=== PATIENT | female | born 1950 | race Caucasian/White ===

== ENCOUNTER 2020-01-04 23:51 | Observation (INO) | payer MEDICARE, SELFPAY ==
[2020-01-05] VITALS (26 sets, daily range): BP systolic 130–206; BP diastolic 62–97; PULSE 81–136; RESP 15–35; TEMP 36.2–37.2; O2SAT 89–99; BMI 23.6; BMI 24.7
--- NOTE | 2020-01-05 00:01 | ED.GENADULT ---
HPI - General Adult General Chief complaint: Shortness of Breath/Dyspnea Stated complaint: Shortness of breath Time Seen by Provider: 01/05/20 00:01 Source: patient and EMS Mode of arrival: EMS Limitations: no limitations History of Present Illness HPI narrative: 69-year-old female with history of asthma. Takes a daily inhaled steroid here by EMS for evaluation of shortness of breath. Patient states that she started become short of breath earlier this evening. She is staying with a friend who has a dog which is a known trigger for her. She states that she tried to use her rescue inhaler several times at home without any improvement. She then found out that the rescue inhaler was not dispensing any medications. She states that the Dilaudid did not say that it was empty however no medication was coming out when she was administering the medicine. Patient denies any fevers. No recent travel. No chest pain. Has been admitted to the hospital in the past for asthma. Has never been intubated. Has never had any ICU stays. Review of Systems Constitutional Constitutional: Denies chills and Denies fever(s) Cardiovascular Cardiovascular: Reports chest pain (Related to her breathing) Respiratory Respiratory: Reports cough Gastrointestinal Gastrointestinal: Denies nausea and Denies vomiting Musculoskeletal Musculoskeletal: Denies myalgias Integumentary/Breasts Skin/Breast: Denies rash Neurologic Neurologic: Denies behavioral changes Psychiatric Psychiatric: Denies behavioral changes Hematologic/Lymphatic Hematologic/Lymphatic: Denies easy bleeding and Denies easy bruising Allergic/Immunologic Allergic/Immunologic: Denies urticaria Patient History Medical History Asthma (Acute) Social History lives independently: Yes Exam Initial Vital Signs Initial Vital Signs: Vital Signs Pulse Rate 136 H 01/05/20 00:00 Blood Pressure 198/91 H 01/05/20 00:00 Pulse Oximetry 98 01/05/20 00:00 Const General: cooperative and healthy appearing Limitations: mental status not altered HENMT Head: normal to inspection and normocephalic Resp Effort & Inspection: not able to speak in complete sentences, audible wheezes, labored, no retractions and tachypneic Auscultation: wheezes Cardio Rate: tachycardic Rhythm: regular rhythm GI Inspection: non-distended Skin Lesions: no lesions Rashes: no rashes Neuro General: patient alert and patient awake Cognition: normal cognition Speech: speech normal Extrem General: normal to inspection and capillary refill normal Psych Appearance: grossly normal and well kempt Scores GCS [place] coma scale eye opening: Spontaneous [place] coma scale verbal response: Orientated [place] coma scale motor response: Obey commands [place] coma scale total score: 15 Course Orders Ordered: ED Orders 01/05/20 00:02 XR chest 1V Stat EKG-12 Lead Stat 01/05/20 00:03 RT Consult Eval and Treat Now 01/05/20 00:05 Basic Metabolic Panel Stat Complete Blood Count AUTO DIFF Stat Troponin I Stat Magnesium Sulfate (Magnesium Sulfate) 2 gm in 50 mls @ 25 mls/hr IV NOW ONE Stop: 01/05/20 06:58 Discontinued Medications Albuterol (Ventolin Hfa) 4 puff INH NOW ONE Stop: 01/05/20 00:02 Last Admin: 01/05/20 00:41 Dose: 4 puff Documented by: GERARDO Albuterol (Ventolin Hfa) 2 puff INH NOW ONE Stop: 01/05/20 03:23 Last Admin: 01/05/20 03:39 Dose: 2 puff Documented by: BRANDON Albuterol/Ipratropium (Duoneb) 3 ml INH NOW ONE Stop: 01/05/20 04:15 Last Admin: 01/05/20 04:22 Dose: 3 ml Documented by: BRANDON Methylprednisolone (Solu-Medrol 125 Mg Vial) 125 mg IV NOW ONE Stop: 01/05/20 00:02 Last Admin: 01/05/20 00:40 Dose: 125 mg Documented by: GERARDO Vital Signs Vital signs: Vital Signs - 8 hr 01/05/20 00:00 01/05/20 00:03 01/05/20 00:30 Temperature 98.9 F Pulse Rate 136 H 136 H 97 H Respiratory Rate 35 H Blood Pressure 198/91 H 206/97 H Pulse Oximetry 98 99 98 01/05/20 00:31 01/05/20 00:32 01/05/20 01:00 Temperature Pulse Rate 130 H 95 H Respiratory Rate 32 H Blood Pressure 160/72 H 159/70 H Pulse Oximetry 98 93 01/05/20 01:30 01/05/20 02:00 01/05/20 02:30 Temperature Pulse Rate 87 87 91 H Respiratory Rate Blood Pressure 140/67 139/70 145/77 H Pulse Oximetry 91 93 91 01/05/20 03:00 01/05/20 03:30 01/05/20 04:00 Temperature Pulse Rate 91 H 92 H 91 H Respiratory Rate 19 25 H Blood Pressure 144/78 H 137/67 152/73 H Pulse Oximetry 91 93 89 L 01/05/20 04:25 Temperature Pulse Rate 90 Respiratory Rate 18 Blood Pressure Pulse Oximetry 90 L Medical Decision Making Lab Data Lab results reviewed: Yes I reviewed the patient's lab results. Result diagrams: 01/05/20 00:05 01/05/20 00:05 Labs: Lab Results 01/05/20 01/05/20 01/05/20 Range/Units 00:05 00:05 00:35 WBC 8.1 (4.5-11.0) X10^3/uL RBC 4.09 (4.0-5.2) X10^6/uL Hgb 13.4 (12.0-16.0) g/dL Hct 39.2 (36-46) % MCV 95.8 (80-100) fL MCH 32.8 (26-34) PG MCHC 34.2 (30-36) % RDW 12.7 (11.6-14.8) % Plt Count 277 (150-400) X10^3/uL Neut % (Auto) 49.4 L (50-75) % Lymph % (Auto) 33.1 (25-40) % [place] % (Auto) 10.9 (3-14) % Eos % (Auto) 5.8 H (2-4) % Baso % (Auto) 0.8 (0-2) % Neut # (Auto) 4000 (5099-3084) /uL Lymph # (Auto) 2700 (1582-3912) /uL [place] # (Auto) 900 (0-900) /uL Eos # (Auto) 500 H (0-450) /uL Baso # (Auto) 100 (0-100) /uL Sodium 136 L (137-145) mmol/L Potassium 4.5 (3.4-5.1) mmol/L Chloride 104 (98-107) mmol/L Carbon Dioxide 23 (22-32) mmol/L BUN 15 (7-17) mg/dL Creatinine 0.67 (0.52-1.04) mg/dL Estimated GFR > 60.0 (>60) mL/min BUN/Creatinine Ratio 22.4 H (6-22) Glucose 154 H (80-110) mg/dL Calcium 9.4 (8.4-10.2) mg/dL Troponin I < 0.012 (0.01-0.034) ng/mL COVID-19 PCR Cancelled 01/05/20 Range/Units 00:35 WBC (4.5-11.0) X10^3/uL RBC (4.0-5.2) X10^6/uL Hgb (12.0-16.0) g/dL Hct (36-46) % MCV (80-100) fL MCH (26-34) PG MCHC (30-36) % RDW (11.6-14.8) % Plt Count (150-400) X10^3/uL Neut % (Auto) (50-75) % Lymph % (Auto) (25-40) % [place] % (Auto) (3-14) % Eos % (Auto) (2-4) % Baso % (Auto) (0-2) % Neut # (Auto) (6266-5116) /uL Lymph # (Auto) (7391-8319) /uL [place] # (Auto) (0-900) /uL Eos # (Auto) (0-450) /uL Baso # (Auto) (0-100) /uL Sodium (137-145) mmol/L Potassium (3.4-5.1) mmol/L Chloride (98-107) mmol/L Carbon Dioxide (22-32) mmol/L BUN (7-17) mg/dL Creatinine (0.52-1.04) mg/dL Estimated GFR (>60) mL/min BUN/Creatinine Ratio (6-22) Glucose (80-110) mg/dL Calcium (8.4-10.2) mg/dL Troponin I (0.01-0.034) ng/mL COVID-19 PCR Negative Imaging Data Chest x-ray: Attestation: I personally reviewed and interpreted this imaging study as follows: My Impression: No focal consolidations, no pneumonia ECG Data Attestation: I personally reviewed and interpreted this ECG as follows: Prior ECG tracings: not available for review Interpretation: Sinus tachycardia Ventricular rate at 1 1 Normal axis Normal QRS Normal QTC No ST T wave changes MDM Narrative Medical decision making narrative: Initially patient was placed under droplet precautions secondary to potential COVID-19. She was given albuterol through an MDI and a spacer which did seem to improve her symptoms somewhat. She was given Solu-Medrol. Observation the emergency department did show some improvement of her symptoms. She was given another couple doses of the albuterol per MDI however when the patient stood up to go to the bathroom she desaturated to the mid 80s in became very short of breath. This improved quickly with rest. She was then tested for COVID-19 by the rapid test which was negative. She was then given a DuoNeb which against she states improved her symptoms however she still had residual wheezing. Ambulation around the emergency department on pulse ox shows that she did desat to the high 80s and did become short of breath with exertion. Discussed the case with SHAYE Nino the [facility] hospital provider. Will admit for further evaluation and treatment secondary to the hypoxia. Discharge Plan Departure Patient Disposition: Admitted as Observation Clinical Impression: Hypoxia Asthma with exacerbation Qualifiers: Asthma severity: unspecified severity Asthma persistence: unspecified Qualified Code(s): J45.901 - Unspecified asthma with (acute) exacerbation Admit Date/Time: 01/05/20 05:08 Admit Provider: Perez Nino
--- NOTE | 2020-01-05 00:02 | DI.RAD.S_ITS ---
PROCEDURE: XR CHEST 1V INDICATIONS: Shortness of breath TECHNIQUE: One view of the chest was acquired. COMPARISON: None. FINDINGS: Surgical changes and devices: None. Lungs and pleura: Lungs are clear. No pleural effusions or pneumothorax. Mediastinum: Mediastinal contours appear normal. Heart size is normal. Bones and chest wall: No suspicious bony lesions. Overlying soft tissues appear unremarkable. IMPRESSION: No acute cardiopulmonary abnormality. Dictated by: Jaylon Mckinnon M.D. on 01/05/2020 at 7:55 Approved by: Jaylon Mckinnon M.D. on 01/05/2020 at 7:55
[2020-01-05 00:16] LABS: Add Manual Diff / Slide Review NO; Basophils Absolute Auto 100 /uL (0-100); Basophils Percent Auto 0.8 % (0-2); Eosinophils Absolute Auto 500 /uL (0-450); Eosinophils Percent Auto 5.8 % (2-4); Hematocrit 39.2 % (36-46); Hemoglobin 13.4 g/dL (12.0-16.0); Lymphocytes Absolute Auto 2700 /uL (1100-4500); Lymphocytes Percent Auto 33.1 % (25-40); Mean Corpuscular HGB Conc 34.2 % (30-36); Mean Corpuscular Hemoglobin 32.8 PG (26-34); Mean Corpuscular Volume 95.8 fL (80-100); Monocytes Absolute Auto 900 /uL (0-900); Monocytes Percent Auto 10.9 % (3-14); Neutrophils Absolute Auto 4000 /uL (1500-7000); Neutrophils Percent Auto 49.4 % (50-75); Platelet Count 277 X10^3/uL (150-400); Red Blood Cell Count 4.09 X10^6/uL (4.0-5.2); Red Cell Distribution Width 12.7 % (11.6-14.8); White Blood Cell Count 8.1 X10^3/uL (4.5-11.0)
[2020-01-05 00:22] LABS: BUN Creatinine Ratio 22.4 (6-22); Blood Urea Nitrogen 15 mg/dL (7-17); Calcium 9.4 mg/dL (8.4-10.2); Carbon Dioxide 23 mmol/L (22-32); Chloride 104 mmol/L (98-107); Estimated Glomerular Filt Rate > 60.0 mL/min (>60); Glucose 154 mg/dL (80-110); HEMOLYSIS < 15 (0-50); Potassium 4.5 mmol/L (3.4-5.1); Sodium 136 mmol/L (137-145)
[2020-01-05 00:34] LABS: Troponin I < 0.012 ng/mL (0.01-0.034)
[2020-01-05] MEDS: methylPREDNISolone 125 MG/2 ML VIAL IV (00:40)
[2020-01-05] MEDS: ALBUTEROL HFA 60 PUFF/8 GM INH INH ×2 (00:41→03:39)
--- NOTE | 2020-01-05 00:58 | PC.NURSE ---
much improved after albuterol inhaler with spacer.
--- NOTE | 2020-01-05 02:25 | PC.NURSE ---
Pt had been dropping on room air to 87%. Placed pt on 1L via nc and increased to 91%.
--- NOTE | 2020-01-05 03:18 | PC.NURSE ---
Provider wanted room air challenge. Pt requested to ambulate to the bathroom. monitor SPo2 on way to bathroom. pt dropped to 85%, increased rr and started with the pursed lip breathing. Hr increased to 125 at this time. upon getting back to bed, Replaced o2 on patient at 6 L initially to help patient recover. Gave 2 puffs of albuterol and pt began to improve. Pt turned O2 back down to 1L at this time. Provider aware.
[2020-01-05 04:10] LABS: COVID19 -Nasal RAPID Negative (Negative)
[2020-01-05] MEDS: ALBUTEROL/IPRATROPIUM 3 ML AMPUL INH (04:22)
[2020-01-05] MEDS: MAGNESIUM SULFATE 2 GM/50 ML PIGGYBACK IV (05:15)
[2020-01-05 05:33] LABS: Magnesium 2.1 mg/dL (1.6-2.3)
--- NOTE | 2020-01-05 05:50 | PM.HP.1 ---
History of Present Illness History of Present Illness Date Patient Seen: 01/05/20 Time Patient Seen: 05:30 Chief complaint: Shortness of breath Narrative: Ms Ute Coley is a 69-year-old female with a past medical history significant for moderate persistent asthma, hypertension, anxiety and depression and eczema who presents to the ER with shortness of breath. The patient resides in [place] in is visiting her sister here in [place] who has 3 dogs. The patient states that she began having shortness of breath on Wednesday and she had her provider call in an inhaler to local pharmacy. Apparently a haler was nonfunctional the patient had progressive dyspnea. On presentation to the ER the patient reports chest tightness, marked shortness of breath, audible wheezing with associated diaphoresis and unable to speak in full sentences. The patient has previously required steroid therapy for exacerbations but has never been intubated or required an ICU stay. She denies complaints of fevers or chills and has had no known COVID-19 exposures. She denies nasal congestion or sore throat. She reports chest tightness from her asthma and denies palpitations. She has shortness of breath as noted above. She denies abdominal pain and has had no heartburn, nausea or vomiting. She denies complaints of diarrhea, constipation or urinary symptoms. The patient is normally ambulatory without assistive devices. Upon arrival ER the patient has a temperature of 98.9? is tachycardic at 136, blood pressure of 206/97, respiratory rate of 35 saturating at 99% on room air. A chest x-ray was obtained showing no acute cardiopulmonary pathology. Twelve lead EKG was obtained which demonstrates sinus tachycardia with a ventricular rate of 101 without ectopy or block and a normal axis. She had ST or T-wave changes, Q-waves indicative of septal infarct. On laboratory analysis she has white count 8.1 with increased eosinophils of 5.8%. Her hemoglobin is 13.4 and a hematocrit of 39.0 and platelets of 277. Her electrolytes are all within normal limits with a BUN of 15 and creatinine 0.67. Her blood sugar is 154. Troponin is negative at less than 0.012. In the ER the patient received 3 nebulizer treatments and methylprednisolone 125 mg and magnesium sulfate 2 g IV. The patient was no longer hypoxic on room air but would still desaturate into the 80s on an ambulation trial. The patient is admitted to the medicine service for further management of asthma exacerbation. Patient History Medical History Anxiety (Acute) Asthma (Acute) Eczema (Acute) Hypertension (Acute) Surgical History History of abdominoplasty (Acute) History of detached retina repair (Acute) History of hand surgery (Acute) History of hysterectomy (Acute) Family & Social History Family History (Updated 01/05/20 @ 06:02 by CASEY Aguila) Father Neuropathy History of TIAs Autoimmune disorder Hypertension Mother CVA (cerebral vascular accident) Pulmonary disease Social History: lives independently Yes Safety & Behavioral: Feels Safe in Current Yes Environment Meds Home Medications and Allergies Home Medications Medication Instructions Recorded Confirmed Type albuterol sulfate 2 puff INHALATION Q6H PRN 01/05/20 01/05/20 History betamethasone valerate 1 applic TOPICAL DAILY 01/05/20 01/05/20 History conjugated estrogens 0.3 mg PO DAILY 01/05/20 01/05/20 History fluoxetine 40 mg PO DAILY 01/05/20 01/05/20 History fluoxetine 40 mg PO DAILY 01/05/20 01/05/20 History fluticasone propion-salmeterol 1 inh INHALATION DAILY 01/05/20 01/05/20 History [Advair Diskus] fluticasone propionate [Flonase 1 spray INTRANASAL DAILY PRN 01/05/20 01/05/20 History Allergy Relief] losartan 50 mg PO DAILY 01/05/20 01/05/20 History montelukast 10 mg PO DAILY 01/05/20 01/05/20 History montelukast [Singulair] 10 mg PO DAILY 01/05/20 01/05/20 History Allergies Allergy/AdvReac Type Severity Reaction Status Date / Time ciprofloxacin [From Cipro] Allergy Verified 01/05/20 05:21 codeine Allergy Verified 01/05/20 05:21 Sulfa (Sulfonamide Allergy Verified 01/05/20 05:20 Antibiotics) Review of Systems Review of Systems ROS: Yes All systems reviewed with the patient and are negative except as otherwise documented Exam Vital Signs (past 8 hours): - 01/05/20 00:00 01/05/20 00:03 07/03/20 00:30 Temperature 98.9 F Pulse Rate 136 H 136 H 97 H Respiratory Rate 35 H Blood Pressure 198/91 H 206/97 H Pulse Oximetry 98 99 98 01/05/20 00:31 01/05/20 00:32 01/05/20 01:00 Temperature Pulse Rate 130 H 95 H Respiratory Rate 32 H Blood Pressure 160/72 H 159/70 H Pulse Oximetry 98 93 01/05/20 01:30 01/05/20 02:00 01/05/20 02:30 Temperature Pulse Rate 87 87 91 H Respiratory Rate Blood Pressure 140/67 139/70 145/77 H Pulse Oximetry 91 93 91 01/05/20 03:00 01/05/20 03:30 01/05/20 04:00 Temperature Pulse Rate 91 H 92 H 91 H Respiratory Rate 19 25 H Blood Pressure 144/78 H 137/67 152/73 H Pulse Oximetry 91 93 89 L 01/05/20 04:25 Temperature Pulse Rate 90 Respiratory Rate 18 Blood Pressure Pulse Oximetry 90 L Oxygen Delivery Method Room Air Oxygen Flow Rate 1 Narrative Exam Narrative: GENERAL APPEARANCE: well developed, well nourished, in no acute distress. HEENT: Normocephalic, PERRLA, conjunctiva clear, EOMs intact without nystagmus, no sinus tenderness to percussion, no rhinorrhea, mucous membranes are dry and pink, white coating on tongue. NECK/THYROID: neck supple, no JVD, no thyromegaly, trachea midline. LYMPH NODES: no cervical or supraclavicular lymphadenopathy. SKIN: [place], warm and dry, no visible lesions or rashes HEART: regular rate and rhythm, S1-S2, no murmur, no rubs or gallops, brisk capillary refill, no edema LUNGS: Expiratory wheezing upper and lower left lung, right lung field clear, no coarseness or crackles, no cough present CHEST: Symmetrical movement, no accessory muscle use, good tidal volume. ABDOMEN: Soft, no distention, no abdominal tenderness, no organomegaly, active bowel tones. EXTREMITIES: moves all extremities, strength is 5/5 and symmetrical, no deformities or joint effusions. NEUROLOGIC: AAO x4, no focal neurologic deficits, cranial nerves II-XII grossly intact, sensation intact to light touch, hearing grossly normal to speech. PSYCH: Good eye contact, tangential thought, cooperative, stable behavior Objective Labs Result Diagrams: 01/05/20 00:05 01/05/20 00:05 Labs: Laboratory Results - last 24 hr 01/05/20 01/05/20 01/05/20 00:05 00:05 00:05 WBC 8.1 RBC 4.09 Hgb 13.4 Hct 39.2 MCV 95.8 MCH 32.8 MCHC 34.2 RDW 12.7 Plt Count 277 Neut % (Auto) 49.4 L Lymph % (Auto) 33.1 [place] % (Auto) 10.9 Eos % (Auto) 5.8 H Baso % (Auto) 0.8 Neut # (Auto) 4000 Lymph # (Auto) 2700 [place] # (Auto) 900 Eos # (Auto) 500 H Baso # (Auto) 100 Sodium 136 L Potassium 4.5 Chloride 104 Carbon Dioxide 23 BUN 15 Creatinine 0.67 Estimated GFR > 60.0 BUN/Creatinine Ratio 22.4 H Glucose 154 H Calcium 9.4 Magnesium 2.1 Troponin I < 0.012 COVID-19 PCR 01/05/20 01/05/20 00:35 00:35 WBC RBC Hgb Hct MCV MCH MCHC RDW Plt Count Neut % (Auto) Lymph % (Auto) [place] % (Auto) Eos % (Auto) Baso % (Auto) Neut # (Auto) Lymph # (Auto) [place] # (Auto) Eos # (Auto) Baso # (Auto) Sodium Potassium Chloride Carbon Dioxide BUN Creatinine Estimated GFR BUN/Creatinine Ratio Glucose Calcium Magnesium Troponin I COVID-19 PCR Cancelled Negative Assessment & Plan Assessment & Plan narrative: This is a 69-year-old female patient who was visiting from [place] at her sister's house has dogs that triggered a severe asthma attack. Patient is treated in the ER with multiple nebulized treatments methylprednisolone and magnesium sulfate however the patient continues to desaturate on ambulation trial. Exacerbation of moderate persistent asthma, present on admission, active -the patient his long history of asthma and uses Advair and albuterol at home. She can becoming short of breath 3-4 days ago and was using inhaler that was not functional. -upon arrival to the ER the patient is symptomatic with chest tightness, marked dyspnea, audible wheezing, diaphoresis, hypertension and tachycardia. -chest x-ray finds no acute cardiopulmonary processes. White count is normal at 8.1 with increased eosinophils at 5.8%. -in the ER the patient received multiple nebulizer treatments, 2 g of magnesium IV and methylprednisolone 125 mg with improvement but not to baseline. -requested respiratory therapy to consult, evaluate and treat. -ordered albuterol nebulizer every 2 hours as needed. -ordered prednisone 40 mg daily. -patient appears clinically dry, normal saline 75 cc per. Essential hypertension, present on admission, stable -patient presents with a blood pressure of 206/97 upon arrival to the ER improved to 140 3/76. -will continue patient's home regimen of losartan 50 mg daily. Anxiety, present on admission, stable -will continue patient's home regimen of fluoxetine 40 mg daily. Isolation: None, COVID-19 negative. VTE prophylaxis: SCDs, enoxaparin. IV fluid: Normal saline 75 cc/hour. Diet: Heart healthy. Code status: FULL CODE, her sister Charlene is DPOA and with her friend Rosalinda are surrogate decision makers. The patient is admitted to the hospital due to the severity of symptoms requiring ongoing management and stabilization. The patient is admitted as observation with expected length of stay to be less than 2 midnights. Scores GCS [place] coma scale eye opening: Spontaneous [place] coma scale verbal response: Orientated [place] coma scale motor response: Obey commands [place] coma scale total score: 15
[2020-01-05] MEDS: SODIUM CHLORIDE 0.9% 1,000 ML 75 ML IV (06:55)
--- NOTE | 2020-01-05 07:20 | PC.ADMIT ---
Patient admitted at 0615 to room 207 from ER per stretcher. Admitted due to asthma exacerbation and inability to maintain sats with activity. Is alert and oriented. Breath sounds with late expiratory wheezes throughout; RA sat 93% and is on continuous oximetry. Denies SOB at rest but does become SOB with exertion. HRR; placed on telemetry and is in SR. Denies nausea. BT hypoactive but is passing flatus. Denies dysuria or frequency but has some urinary urgency as well as incontinence at times. Is able to move self in bed and provided SBA when up to bathroom for safety. Noted skin lesions on scalp which she states is from eczema. Cast to left hand/forearm from recent hand surgery. Bruising noted to left arm related to surgery. Right elbow is reddened but without breakdown. Skin on feet is dry. Instructed in use of call light and bed controls. [address] [facility] Admission Note: The patient,Manasa Coley,69 y/o, was given written information regarding hospital policies, unit procedures and contact persons. Patient's smoking status: Current some day smoker. Vital Signs - 8 hr 01/05/20 00:00 01/05/20 00:03 01/05/20 00:30 Temperature 98.9 F Pulse Rate 136 H 136 H 97 H Respiratory Rate 35 H Blood Pressure 198/91 H 206/97 H Pulse Oximetry 98 99 98 01/05/20 00:31 01/05/20 00:32 01/05/20 01:00 Temperature Pulse Rate 130 H 95 H Respiratory Rate 32 H Blood Pressure 160/72 H 159/70 H Pulse Oximetry 98 93 01/05/20 01:30 01/05/20 02:00 01/05/20 02:30 Temperature Pulse Rate 87 87 91 H Respiratory Rate Blood Pressure 140/67 139/70 145/77 H Pulse Oximetry 91 93 91 01/05/20 03:00 01/05/20 03:30 01/05/20 04:00 Temperature Pulse Rate 91 H 92 H 91 H Respiratory Rate 19 25 H Blood Pressure 144/78 H 137/67 152/73 H Pulse Oximetry 91 93 89 L 01/05/20 04:25 01/05/20 04:30 01/05/20 05:00 Temperature Pulse Rate 90 92 H 91 H Respiratory Rate 18 15 17 Blood Pressure 131/69 143/76 H Pulse Oximetry 90 L 98 94 07/03/20 05:30 01/05/20 05:45 01/05/20 06:00 Temperature Pulse Rate 91 H 112 H 89 Respiratory Rate 32 H 26 H 25 H Blood Pressure 150/74 H 153/71 H Pulse Oximetry 89 L 01/05/20 06:32 Temperature 97.3 F L Pulse Rate 87 Respiratory Rate 16 Blood Pressure 139/71 Pulse Oximetry 95
[2020-01-05 08:04] LABS: Hemoglobin A1C% w Est Avg Glu 5.2 % (4.0-6.0)
[2020-01-05] MEDS: ALBUTEROL 2.5 MG/3 ML NEB (ADULT) INH ×3 (08:26→17:30)
[2020-01-05] MEDS: FLUTICASONE/SALMETEROL 500/50 60 PUFF DISKUS INH (08:35)
[2020-01-05] MEDS: ENOXAPARIN 40 MG/0.4 ML SYRINGE SUBCUT (09:59)
[2020-01-05] MEDS: LOSARTAN 50 MG TABLET PO (10:00)
[2020-01-05] MEDS: FLUoxetine 20 MG CAPSULE 40 MG PO (10:00)
[2020-01-05] MEDS: MONTELUKAST 10 MG TABLET PO (10:00)
[2020-01-05] MEDS: predniSONE 20 MG TABLET 40 MG PO (10:00)
--- NOTE | 2020-01-05 12:40 | CM.IDA ---
Initial DCP Assessment Note: Patient is a 69 yo female, resident of [place]- she is here visiting sister. Patient presents w/ SOB, admitted observation for exacerbation of moderate persistent asthma PCP: Unknown Payer: Ruper[employer] MENDOSA Reviewed chart. Met w/patient during multidisciplinary rounds, introduced role. Patient is active and indp. at baseline, lives alone in [place], explains she will likely have no needs from this RECORDS MANAGEMENT ASSISTANT upon DC. Patient's sister lives in [place] and patient plans to stay w/her sister until she can drive her back to her home in [place], hopefully by Wednesday. Dr Whitley anticipates patient will be here this evening and may be able to safely DC tomorrow. P: DC home expected tomorrow w/family via private auto. This RECORDS MANAGEMENT ASSISTANT will remain available in case in DC needs or concerns arise. CHANCE Valenzuela Discharge Planning/Care Management CM Discharge Assessment Start: 01/05/20 12:35 Freq: Status: Active Protocol: Document 01/05/20 12:36 FERMIN (Rec: 01/05/20 12:40 FERMIN [id number]) Discharge Planning Assessment Assigned Tax Compliance Representative CHANCE House DPOA/Assigned Designee Name sister Dennis Contact Information [phone] Advance Directives? Yes History Provided By Patient Prior Living Arrangements Apartment/Condo Comment [facility] Household Members none Type of transporation used prior to Drives own vehicle admit Independent with ADL's Yes Is patient alert and oriented? Yes Barriers to Discharge No Comment Patient plans to DC home w/ sister once medically cleared and sister plans to drive her back to [place] Wednesday Discharge Plan Home Transportation Arrangement Family Referrals Initiated None needed
--- NOTE | 2020-01-05 14:03 | P.PN_ITS ---
Subjective Subjective Date Patient Seen: 01/05/20 Interval history: She is seen today to follow-up her acute bronchospasm and recent left and surgery. There is a small ?picking type ulcer? on her vertex which she blames on eczema and scratching. She is quite engaged and enthusiastically. She plans to return to her home in [place] but is currently visiting her sister here while she recovers from the left hand surgery. She feels like she is breathing better. Her glucose was 154. She has no history of diabetes. The A1c is only 5.2 Exam Vital Signs (past 8 hours): - 01/05/20 06:32 01/05/20 07:57 01/05/20 10:00 Temperature 97.3 F L 97.1 F L Pulse Rate 87 81 88 Respiratory Rate 16 15 Blood Pressure 139/71 133/78 133/78 Pulse Oximetry 95 93 01/05/20 11:25 Temperature 98.7 F Pulse Rate 81 Respiratory Rate 17 Blood Pressure 130/62 Pulse Oximetry 94 Oxygen Delivery Method Room Air Oxygen Flow Rate 0 Narrative Exam Narrative: She is alert and oriented x3. She is in no apparent distress. Heart is regular rate and rhythm without murmur. Lungs are very tight with diminished air flow and wheezing bilaterally. Extremities have no ankle edema. There is a 4 mm picking type crater like ulcer on the top of the head with surrounding hair follicles of different lengths consistent with hair pulling. Objective Labs Result Diagrams: 01/05/20 00:05 01/05/20 00:05 Labs: Laboratory Results - last 24 hr 01/05/20 01/05/20 01/05/20 00:05 00:05 00:05 WBC 8.1 RBC 4.09 Hgb 13.4 Hct 39.2 MCV 95.8 MCH 32.8 MCHC 34.2 RDW 12.7 Plt Count 277 Neut % (Auto) 49.4 L Lymph % (Auto) 33.1 Ceiba % (Auto) 10.9 Eos % (Auto) 5.8 H Baso % (Auto) 0.8 Neut # (Auto) 4000 Lymph # (Auto) 2700 Ceiba # (Auto) 900 Eos # (Auto) 500 H Baso # (Auto) 100 Sodium 136 L Potassium 4.5 Chloride 104 Carbon Dioxide 23 BUN 15 Creatinine 0.67 Estimated GFR > 60.0 BUN/Creatinine Ratio 22.4 H Glucose 154 H Hemoglobin A1c Calcium 9.4 Magnesium 2.1 Troponin I < 0.012 COVID-19 PCR 01/05/20 01/05/20 01/05/20 00:35 00:35 07:54 WBC RBC Hgb Hct MCV MCH MCHC RDW Plt Count Neut % (Auto) Lymph % (Auto) Ceiba % (Auto) Eos % (Auto) Baso % (Auto) Neut # (Auto) Lymph # (Auto) Ceiba # (Auto) Eos # (Auto) Baso # (Auto) Sodium Potassium Chloride Carbon Dioxide BUN Creatinine Estimated GFR BUN/Creatinine Ratio Glucose Hemoglobin A1c 5.2 Calcium Magnesium Troponin I COVID-19 PCR Cancelled Negative Assessment & Plan Assessment & Plan narrative: This is a 69-year-old female patient who was visiting from [place] at her sister's house when exposure to her dogs triggered a severe asthma attack. Patient was treated in the ER with multiple nebulized treatments methylprednisolone and magnesium sulfate however the patient continued to desaturate on ambulation trial. Exacerbation of moderate persistent asthma, present on admission, active -the patient his long history of asthma and uses Advair and albuterol at home. She became short of breath 3-4 days ago and was using an old inhaler that was not functional. -upon arrival to the ER the patient is symptomatic with chest tightness, marked dyspnea, audible wheezing, diaphoresis, hypertension and tachycardia. -chest x-ray finds no acute cardiopulmonary processes. White count is normal at 8.1 with increased eosinophils at 5.8%. -in the ER the patient received multiple nebulizer treatments, 2 g of magnesium IV and methylprednisolone 125 mg with improvement but not to baseline. -respiratory therapy, evaluate and treat. -albuterol nebulizer every 2 hours as needed. -prednisone 40 mg daily. -patient appeared clinically dry, normal saline 75 cc per. Essential hypertension, present on admission, stable -patient presents with a blood pressure of 206/97 upon arrival to the ER improved to 143/76. -will continue patient's home regimen of losartan 50 mg daily. Anxiety, present on admission, stable -will continue patient's home regimen of fluoxetine 40 mg daily. Left Hand Surgery, present on admission, chronic -she apparently had a tendon surgery and a procedure on 1 of the wrist bones. She does not recall the details. She is wearing a cast and will be following up with her surgeon in [place] soon. Isolation: None, COVID-19 negative. VTE prophylaxis: SCDs, enoxaparin. IV fluid: Normal saline 75 cc/hour. Diet: Heart healthy. Code status: FULL CODE, her sister Charlnee is DPOA and with her friend Rosalinda are surrogate decision makers.
[2020-01-05] MEDS: CALCIUM CARBONATE 500 MG TAB 1000 MG PO (14:36)
[2020-01-06 00:40] VITALS: BP 134/87; PULSE 79; RESP 18; TEMP 36.6; O2SAT 93
[2020-01-06 00:51] VITALS: PULSE 65; RESP 16
[2020-01-06] MEDS: ALBUTEROL 2.5 MG/3 ML NEB (ADULT) INH ×2 (00:51→07:43)
--- NOTE | 2020-01-06 01:22 | PC.NURSE ---
Addendum entered by Gena Boston R.N. 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 Pt BP was elevated 166/98, reported both items to Hiram PEÑA. Hiram ordered throat lozenges for patient comfort. Original Note: Patient O2 sats 93% upon assessment and 92% on exertion to the bathroom. RT was called and I asked that they come do a breathing treatment. After treatment o2 sats 95%.
[2020-01-06 05:48] VITALS: BP 162/98; PULSE 80; RESP 18; TEMP 36.3; O2SAT 94
[2020-01-06] MEDS: BENZOCAINE/MENTHOL 1 LOZ PKT 1 EACH PO ×2 (06:13→09:11)
[2020-01-06] MEDS: FLUTICASONE/SALMETEROL 500/50 60 PUFF DISKUS INH (07:41)
[2020-01-06 07:45] VITALS: PULSE 71; RESP 18; O2SAT 96
[2020-01-06 07:55] VITALS: O2SAT 96
[2020-01-06 08:00] VITALS: BP 154/99; PULSE 74; RESP 18; TEMP 36.6; O2SAT 94
--- NOTE | 2020-01-06 08:08 | PM.DS.1 ---
History of Present Illness History of Present Illness Date Patient Seen: 01/06/20 Time Patient Seen: 08:08 Chief complaint: Shortness of breath Narrative: As per CASEY Aguila: Ms Ute Coley is a 69-year-old female with a past medical history significant for moderate persistent asthma, hypertension, anxiety and depression and eczema who presents to the ER with shortness of breath. The patient resides in [place] in is visiting her sister here in [place] who has 3 dogs. The patient states that she began having shortness of breath on Wednesday and she had her provider call in an inhaler to local pharmacy. Apparently a haler was nonfunctional the patient had progressive dyspnea. On presentation to the ER the patient reports chest tightness, marked shortness of breath, audible wheezing with associated diaphoresis and unable to speak in full sentences. The patient has previously required steroid therapy for exacerbations but has never been intubated or required an ICU stay. She denies complaints of fevers or chills and has had no known COVID-19 exposures. She denies nasal congestion or sore throat. She reports chest tightness from her asthma and denies palpitations. She has shortness of breath as noted above. She denies abdominal pain and has had no heartburn, nausea or vomiting. She denies complaints of diarrhea, constipation or urinary symptoms. The patient is normally ambulatory without assistive devices. Upon arrival ER the patient has a temperature of 98.9? is tachycardic at 136, blood pressure of 206/97, respiratory rate of 35 saturating at 99% on room air. A chest x-ray was obtained showing no acute cardiopulmonary pathology. Twelve lead EKG was obtained which demonstrates sinus tachycardia with a ventricular rate of 101 without ectopy or block and a normal axis. She had ST or T-wave changes, Q-waves indicative of septal infarct. On laboratory analysis she has white count 8.1 with increased eosinophils of 5.8%. Her hemoglobin is 13.4 and a hematocrit of 39.0 and platelets of 277. Her electrolytes are all within normal limits with a BUN of 15 and creatinine 0.67. Her blood sugar is 154. Troponin is negative at less than 0.012. In the ER the patient received 3 nebulizer treatments and methylprednisolone 125 mg and magnesium sulfate 2 g IV. The patient was no longer hypoxic on room air but would still desaturate into the 80s on an ambulation trial. The patient is admitted to the medicine service for further management of asthma exacerbation. Discharge Providers Provider Date of admission: 01/05/20 05:08 Discharge Date: 01/06/20 Consults: 01/05/20 05:19 Consult to Discharge Planning Routine Comment: Consult to Respiratory Therapy Evaluate & Treat Comment: Asthma exacerbation Physician Instructions: Evaluate and treat Discharge provider: Perez Vega DO Summary Hospital Course Discharge Diagnosis: Please see hospital course by problem list noted below Hospital Course: This is a 69-year-old female patient who was visiting from [place] at her sister's house when exposure to her dogs triggered a severe asthma attack. Patient was treated in the ER with multiple nebulized treatments methylprednisolone and magnesium sulfate however the patient continued to desaturate on ambulation trial. She continued to improve with nebulizer treatments and oral steroids and was discharged home when she was able to ambulate without supplemental oxygen and was symptomatically improved. 1. Exacerbation of moderate persistent asthma, present on admission, active -the patient his long history of asthma and uses Advair and albuterol at home. 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 -upon arrival to the ER the patient was symptomatic with chest tightness, marked dyspnea, audible wheezing, diaphoresis, hypertension and tachycardia. -chest x-ray showed no acute cardiopulmonary processes. White count is normal at 8.1 with increased eosinophils at 5.8%. -in the ER the patient received multiple nebulizer treatments, 2 g of magnesium IV and methylprednisolone 125 mg with improvement but not to baseline. She was continued on a prednisone 40 mg daily and as needed nebulizer treatments. She was discharged once symptomatically improved. 2. Essential hypertension, present on admission, stable -patient presented with a blood pressure of 206/97 upon arrival to the ER improved to 143/76. -will continue patient's home regimen of losartan 50 mg daily. Recommend outpatient follow-up with primary care provider once off of steroids. 3. Anxiety, present on admission, stable -continue patient's home regimen of fluoxetine 40 mg daily. 4. Left Hand Surgery, present on admission, chronic -she apparently had a tendon surgery and a procedure on 1 of the wrist bones. She does not recall the details. She is wearing a cast and will be following up with her surgeon in [place] soon. Dispo: Patient was discharged home and will follow-up with her primary care provider in [place]. Exam Vital Signs (past 8 hours): - 01/06/20 00:40 01/06/20 00:51 01/06/20 05:48 Temperature 97.9 F 97.3 F L Pulse Rate 79 65 80 Respiratory Rate 18 16 18 Blood Pressure 134/87 162/98 H Pulse Oximetry 93 94 01/06/20 07:45 01/06/20 07:55 Temperature Pulse Rate 71 Respiratory Rate 18 Blood Pressure Pulse Oximetry 96 96 Oxygen Delivery Method Room Air Oxygen Flow Rate 0 Narrative Exam Narrative: GENERAL APPEARANCE: Well developed, well nourished, in no acute distress. SKIN: Inspection of the skin reveals no rashes, ulcerations or petechiae. HEENT: Normocephalic atraumatic, extraocular muscles are intact, oropharynx is clear and mucous membranes are moist, neck is supple with small right-sided tender adenopathy. NECK: Supple and symmetric. There was no thyroid enlargement, and no tenderness, or masses were felt. CHEST: Normal AP diameter and normal contour without any kyphoscoliosis. LUNGS: Auscultation of the lungs revealed mild expiratory wheezing throughout all lung santana. There are no rhonchi rales. CARDIOVASCULAR: There was a regular rate and rhythm without any murmurs, gallops, rubs. Peripheral pulses were 2+ and symmetric. ABDOMEN: Soft and nontender with normal bowel sounds. No ascites was noted. MUSCULOSKELETAL: There was no tenderness or effusions noted. Muscle strength and tone were normal. EXTREMITIES: No cyanosis, clubbing or edema. NEUROLOGIC: Alert and oriented x 3. Normal affect. Strength is +5/5 in the Upper Extremities and Lower Extremities Bilaterally. Sensation to touch was normal. Objective Labs Result Diagrams: 01/05/20 00:05 01/05/20 00:05 Discharge Plan Discharge Plan Patient Disposition: Home Discharge comment: You were admitted to the hospital with an exacerbation of asthma. You improved quickly with treatments and steroids. Please complete your course of steroids and follow up with your primary care provider in the next 1-2 weeks for repeat check of your blood pressure off of the steroids. Discharge orders & Medications Prescriptions: New prednisone 20 mg tablet 40 mg PO DAILY 3 Days Qty: 6 RF: 0 Continued losartan 50 mg Tablet 50 mg PO DAILY RF: 0 betamethasone valerate 0.1 % Cream 1 applic TOPICAL DAILY RF: 0 fluticasone propion-salmeterol [Advair Diskus] 500-50 mcg/dose Blister With Device 1 inh INHALATION DAILY RF: 0 albuterol sulfate 90 mcg/actuation Hfa Aerosol Inhaler 2 puff INHALATION Q6H PRN (Reason: short of breath) RF: 0 fluticasone propionate [Flonase Allergy Relief] 50 mcg/actuation [place],Suspension 1 spray INTRANASAL DAILY PRN (Reason: allergies) RF: 0 montelukast [Singulair] 10 mg Tablet 10 mg PO DAILY RF: 0 conjugated estrogens 0.3 mg Tablet 0.3 mg PO DAILY RF: 0 fluoxetine 20 mg capsule 40 mg PO DAILY RF: 0 Discharge Health Status Health Concerns: Asthma exacerbation Diet/Activity/Treatments Diet: Diet as Tolerated Activity: As tolerated Visit Report/Discharge Packet Instructions: Tips for Controlling Your Asthma, DI for Asthma -- Adult, How to Prevent Falls, DI for Hypoxia Visit Report Forms: Patient Portal/API, Stroke Signs & Symptoms Discharge Data Attending Provider: Perez Nino Admit Date/Time: 01/05/20 05:08
[2020-01-06] MEDS: ACETAMINOPHEN 325 MG TABLET 650 MG PO (09:11)
[2020-01-06] MEDS: ENOXAPARIN 40 MG/0.4 ML SYRINGE SUBCUT (09:11)
[2020-01-06] MEDS: predniSONE 20 MG TABLET 40 MG PO (09:12)
[2020-01-06] MEDS: FLUoxetine 20 MG CAPSULE 40 MG PO (09:12)
[2020-01-06] MEDS: LOSARTAN 50 MG TABLET PO (09:12)
[2020-01-06] MEDS: MONTELUKAST 10 MG TABLET PO (09:13)
[2020-01-06] MEDS: CALCIUM CARBONATE 500 MG TAB 1000 MG PO (09:31)
--- NOTE | 2020-01-06 12:58 | CM.DPNOTE ---
DC Note DC order in place for home, no barriers identified today to safe return home. Patient is ambulating indp in room and plans to have sister transport her home. P: DC home w/family via private auto today, close outpt f/u recommended JW
== END 2020-01-06 14:30 | disposition home or self-care (01) ==
LOC: ED 01-05 04:57 → AC 01-05 05:08
PROVIDERS: Family Medicine; Admitting Provider Nurse Practitioner Adult Health; Emergency Provider Emergency Medicine; Referring Provider Emergency Medicine; Visit Provider Nurse Practitioner Adult Health
DX: J45.901 Unspecified asthma with (acute) exacerbation (principal); R06.02 Shortness of breath; I10 Essential (primary) hypertension; F41.9 Anxiety disorder, unspecified; Z98.890 Other specified postprocedural states; Z11.59 Encounter for screening for other viral diseases
CPT/HCPCS: 36415; 71045; 80048; 82962; 83036; 83735; 84484; 85025; 87635; 93005; 94150; 94640; 94762; 96361; 96372; 96374; 99284; 99285; G0378; J1650; J2930; J7613

== ENCOUNTER → 2025-03-30 13:59 | Outpatient (CLI) | payer MEDICARE, SELFPAY ==
[2020-01-05 06:22] VITALS: BMI 24.7
--- NOTE | 2025-03-30 14:02 | DI.RAD.S_ITS ---
PROCEDURE: XR LUMBAR SPINE 5V INDICATIONS: Eval for spondylosis TECHNIQUE: 5 views of the lumbar spine were acquired, including bilateral oblique views. COMPARISON: None. FINDINGS: Mild levoscoliosis some of which may be artifact from positioning centered at L3. Moderate degenerative changes lower thoracic, lumbar spine with disc space narrowing and osteophytes, facet osseous hypertrophic changes most notably at L3-4, L4-5 and L5-S1 with suspected neural foraminal narrowing. No gross pars defects. Moderate vascular calcifications of the aorta and iliac vessels partially imaged. Moderate degenerative changes bilateral hips and sacroiliac joints partially imaged. No radiographic evidence of lumbar spine fracture or subluxation. IMPRESSION: Degenerative changes as discussed above. If symptoms persist or worsen, or there is high clinical suspicion of lumbar abnormality, MRI could be performed. Dictated by: Octaviano oJnes M.D. on 03/30/2025 at 16:02 Approved by: Octaviano Jones M.D. on 03/30/2025 at 16:03
== END ==
LOC: RAD 14:02
PROVIDERS: Referring Provider Chiropractor; Visit Provider Chiropractor
DX: M47.814 Spondylosis without myelopathy or radiculopathy, thoracic region (principal); M47.816 Spondylosis without myelopathy or radiculopathy, lumbar region; M54.50 Low back pain, unspecified
CPT/HCPCS: 72110

== ENCOUNTER → 2025-04-02 10:14 | Outpatient (CLI) | payer MEDICARE, SELFPAY ==
[2020-01-05 06:22] VITALS: BMI 24.7
--- NOTE | 2025-04-02 10:20 | DI.RAD.S_ITS ---
PROCEDURE: XR THORACIC SPINE 2V INDICATIONS: RO POSS OF FX TECHNIQUE: 3 views of the thoracic spine were acquired. COMPARISON: None. FINDINGS: Bones: No fractures or dislocations. No suspicious bony lesions. Spondylitic changes are noted in mid to lower thoracic spine. 12 pairs of ribs are noted, and appear intact where visualized. Soft tissues: No paravertebral stripe thickening. IMPRESSION: No acute compression fracture or spondylolisthesis in thoracic spine. [id number] spondylitic changes in mid to lower thoracic spine. No gross paraspinous soft tissue abnormalities. Dictated by: Terence Maria M.D. on 04/02/2025 at 13:01 Approved by: Terence Maria M.D. on 04/02/2025 at 13:15
--- NOTE | 2025-04-02 10:21 | DI.RAD.S_ITS ---
PROCEDURE: XR CERVICAL SPINE 2V OR 3V INDICATIONS: RO POSS OF FX TECHNIQUE: 3 view(s) of the cervical spine were acquired. COMPARISON: None. FINDINGS: Bones: Straightening of normal cervical lordosis. There is 3 mm anterolisthesis of C5 on C6. Loss of disc height, degenerative endplate changes and bilateral facet hypertrophic changes are noted throughout cervical spine more notably at C5-6 and C6-7 levels. The lateral masses of C1 appear intact on the odontoid view. No suspicious bony lesions. Soft tissues: No prevertebral soft tissue swelling. IMPRESSION: 1. No acute cervical spine fracture or dislocation. 2. Grade 1 anterolisthesis at C4-5 level. [id number] spondylitic changes throughout cervical spine. Dictated by: Terence Maria M.D. on 04/02/2025 at 13:15 Approved by: Terence Maria M.D. on 04/02/2025 at 13:16
== END ==
PROVIDERS: Visit Provider Chiropractor
DX: M54.51 Vertebrogenic low back pain (principal); M47.816 Spondylosis without myelopathy or radiculopathy, lumbar region; M43.12 Spondylolisthesis, cervical region; M47.812 Spondylosis without myelopathy or radiculopathy, cervical region
CPT/HCPCS: 72040; 72070

== ENCOUNTER → 2025-04-17 16:42 | Outpatient (CLI) | payer MEDICARE, SELFPAY ==
[2020-01-05 06:22] VITALS: BMI 24.7
--- NOTE | 2025-04-17 16:43 | DI.MRI.S_ITS ---
PROCEDURE: MR LUMBAR SPINE WO CON INDICATIONS: RT SIDED LOW BACK PAIN TECHNIQUE: Noncontrast sagittal T1 spin echo and T2 fast echo, sagittal STIR, and T2 fast spin echo through the lumbar spine. In cases with scoliosis, additional coronal T2 fast spin echo may be performed. COMPARISON: None. FINDINGS: Image quality: Excellent. Alignment and Curvature: There is normal bony alignment. Bone Marrow: Extensive marrow edema in the bilateral sacral ala and S2 element with presacral edema, partially imaged. Bilateral sacral ala fracture lines, partially imaged. Spinal Cord: Conus medullaris terminates at the L1 level. Visualized cord demonstrates normal signal and size. Paraspinous Soft Tissues: No paravertebral masses. T12-L1: Mild disc height loss and diffuse bulge. Mild facet hypertrophy. No spinal canal or foraminal stenosis. L1-L2: Mild disc bulge. Mild facet arthropathy. No spinal canal or foraminal stenosis. L2-L3: Mild disc bulge. Moderate facet hypertrophy. Mild spinal canal stenosis. No foraminal stenosis. L3-L4: Disc height loss and disc bulge. Moderate facet hypertrophy. Moderate central canal stenosis. Moderate right and mild left foraminal stenosis. L4-L5: Severe disc height loss. Diffuse disc bulge. Moderate facet hypertrophy. Mild central canal stenosis. Moderate right and moderate to severe left foraminal stenosis. L5-S1: Moderate disc height loss and diffuse disc bulge with moderate facet hypertrophy. No central canal stenosis. Moderate left and moderate right foraminal stenosis. IMPRESSION: Acute sacral fracture, partially imaged. Multilevel degenerative change of the lumbar spine, most pronounced at L4-L5 with moderate to severe left foraminal stenosis. Dictated by: Jarocho Marmolejo M.D. on 04/18/2025 at 18:59 Approved by: Jarocho Marmolejo M.D. on 04/18/2025 at 19:06
== END ==
PROVIDERS: PCP Internal Medicine; Referring Provider Family Medicine; Visit Provider Family Medicine
DX: S32.10XA Unspecified fracture of sacrum, initial encounter for closed fracture (principal); M51.369 Other intervertebral disc degeneration, lumbar region without mention of lumbar back pain or lower extremity pain; M51.379 Other intervertebral disc degeneration, lumbosacral region without mention of lumbar back pain or lower extremity pain; M48.07 Spinal stenosis, lumbosacral region; M48.061 Spinal stenosis, lumbar region without neurogenic claudication; M47.816 Spondylosis without myelopathy or radiculopathy, lumbar region; M47.817 Spondylosis without myelopathy or radiculopathy, lumbosacral region
CPT/HCPCS: 72148

== ENCOUNTER → 2025-04-30 16:18 | Outpatient (CLI) | payer MEDICARE, SELFPAY ==
[2020-01-05 06:22] VITALS: BMI 24.7
--- NOTE | 2025-04-30 16:25 | DI.RAD.S_ITS ---
PROCEDURE: XR SACRUM COCCYX MIN 2V INDICATIONS: SACRAL FRACTURE TECHNIQUE: 3 views of the sacrum and coccyx acquired. COMPARISON: None. FINDINGS: Bones: There are no fracture osseous abnormalities. SI and hip joints: Mild degeneration both hip and SI joints. Severe L5-S1 degenerative disc and facet disease Soft tissues: No soft tissue swelling, calcification or mass. IMPRESSION: No sacral fracture identified. Degeneration Dictated by: Gonzales Arshad M.D. on 05/01/2025 at 12:56 Approved by: Gonzales Arshad M.D. on 05/01/2025 at 12:58
== END ==
PROVIDERS: PCP Internal Medicine; Referring Provider Internal Medicine; Visit Provider Family Medicine
DX: S32.10XA Unspecified fracture of sacrum, initial encounter for closed fracture (principal); M16.0 Bilateral primary osteoarthritis of hip; M47.817 Spondylosis without myelopathy or radiculopathy, lumbosacral region; M51.379 Other intervertebral disc degeneration, lumbosacral region without mention of lumbar back pain or lower extremity pain; M47.818 Spondylosis without myelopathy or radiculopathy, sacral and sacrococcygeal region
CPT/HCPCS: 72220

== ENCOUNTER → 2025-05-09 12:56 | Outpatient (CLI) | payer MEDICARE, SELFPAY ==
[2020-01-05 06:22] VITALS: BMI 24.7
--- NOTE | 2025-05-09 12:57 | DI.MRI.S_ITS ---
PROCEDURE: MR PELVIS WO CON
[2025-05-09 17:02] LABS: Vitamin D 25 Hydroxy (D3) 19.5 ng/mL (30.0-100.0)
== END ==
PROVIDERS: PCP Internal Medicine; Referring Provider Family Medicine; Visit Provider Family Medicine
DX: S32.10XA Unspecified fracture of sacrum, initial encounter for closed fracture (principal); M80.00XA Age-related osteoporosis with current pathological fracture, unspecified site, initial encounter for fracture; M47.816 Spondylosis without myelopathy or radiculopathy, lumbar region
CPT/HCPCS: 36415; 72195; 82306; 82310; 83970

== ENCOUNTER 2025-05-17 19:13 | Emergency (ER) | payer MEDICARE, SELFPAY ==
[2020-01-05 06:22] VITALS: BMI 24.7
[2025-05-17] VITALS (16 sets, daily range): BP systolic 144–197; BP diastolic 72–86; PULSE 74–84; RESP 8–28; TEMP 36.6; O2SAT 91–98; BMI 24.9
--- NOTE | 2025-05-17 19:24 | ED_ITS ---
HPI - Dizziness <Kanika Alcaraz, DO - Last Filed: 05/20/25 07:03> General Chief Complaint: Dizziness Stated Complaint: Dizziness Time Seen by Provider: 05/17/25 19:15 History of Present Illness HPI Narrative: Patient is a 75-year-old female history of hyperlipidemia atrial flutter status post ablation 3days prior at [facility] presenting today with sudden onset of dizziness. She reports that she has been doing well since her ablation however today she had sudden onset of dizziness. She got up to go to use the restroom but really felt unsteady needed to use a chair it took an hour to get her down the hallway to the bathroom. She was feeling nauseous. No numbness tingling or weakness. Since being in the emergency department she is actually feeling a little bit better. No significant headache no facial droop or difficulty speaking. No prior history of vertigo. Denies any chest pain or palpitations. She is currently in a sinus rhythm. She has restarted her Eliquis but was off it prior to her procedure. Related Data Home Medications ?Medication ?Instructions ?Recorded ?Confirmed albuterol sulfate 90 mcg/actuation 2 puff inhalation Q 6H PRN short of 01/05/20 04/08/25 aerosol inhaler breath fluticasone propionate 50 1 spray intranasal DAILY PRN 01/05/20 04/08/25 mcg/actuation nasal allergies spray,suspension (Flonase Allergy Relief) losartan 50 mg tablet 50 mg PO DAILY 01/05/2011/26 montelukast 10 mg tablet 10 mg PO DAILY 01/05/2011/26 (Singulair) atorvastatin 20 mg tablet 20 mg PO DAILY 02/18/2411/26 diltiazem HCl 120 mg mg PO 02/18/24 04/08/25 capsule,extended release 24 hr omeprazole 20 mg capsule,delayed 20 mg PO DAILY 04/08/25 release propafenone 225 mg tablet 225 mg PO BID 02/18/2404/08 duloxetine 60 mg capsule,delayed 60 mg PO DAILY 04/08/25 release wixela inhaler inhalation 03/28/25 04/08/25 Previous Rx's ?Medication ?Instructions ?Recorded cyclobenzaprine 5 mg tablet 5 mg PO TID PRN muscle spa #14 03/28/25 tabs meclizine 25 mg tablet 25 mg PO QID PRN dizziness # 20 tabs 05/18/25 Allergies Allergy/AdvReac Type Severity Reaction Status Date / Time ciprofloxacin (From Cipro) Allergy Verified 05/17/25 19:30 codeine Allergy Verified 05/17/25 19:30 Sulfa (Sulfonamide Allergy Verified 05/17/25 19:30 Antibiotics) Patient History <Kanika Alcaraz DO - Last Filed: 05/20/25 07:03> Medical History (Updated 05/18/25 @ 11:57 by Joshua Hernandez MD) Eczema Anxiety Hypertension Asthma Surgical History History of abdominoplasty History of detached retina repair History of hysterectomy History of hand surgery Family History Father Neuropathy History of TIAs Autoimmune disorder Hypertension Mother CVA (cerebral vascular accident) Pulmonary disease Social History household members: none lives independently: Yes Smoking Status: Former smoker alcohol intake: current alcohol intake frequency: a few times a week Exam <Kanika Alcaraz DO - Last Filed: 05/20/25 07:03> Initial Vital Signs Initial Vital Signs: Vital Signs Pulse Rate 74 05/17/25 19:18 Blood Pressure 158/77 H 05/17/25 19:18 Pulse Oximetry 94 05/17/25 19:18 Oxygen Delivery Method Room Air 05/17/25 19:18 GENERAL: Alert pleasant well-appearing 75-year-old female and in no acute distress. HEENT: Head atraumatic,EOMI, pupils reactive, face symmetric, moist mucous membranes CARDIOVASCULAR: Regular rate and rhythm without murmurs, rubs or gallops. RESPIRATORY: Breath sounds equal bilaterally, no wheezes rales or rhonchi. ABDOMEN: Soft, nontender. Normoactive bowel sounds all 4 quadrants. No guarding or rebound. EXTREMITIES: Normal range of motion, no clubbing or edema. Neurovascularly intact NEUROLOGICAL: Alert and oriented x4.Normal gait and speech. Cranial nerves II through XII grossly intact. Good [id number]-xa-dyer, good meul-ss-rsxf, strength equal bilaterally, no dysarthria or aphasia, sensation in tact to soft touch bilaterally, no visual changes, no facial droop SKIN: Warm, dry, no laceration, no petechiae, no rashes or lesions. <Joshua Hernandez MD - Last Filed: 05/18/25 14:19> Initial Vital Signs Initial Vital Signs: Vital Signs Pulse Rate 74 05/17/25 19:18 Blood Pressure 158/77 H 05/17/25 19:18 Pulse Oximetry 94 05/17/25 19:18 Oxygen Delivery Method Room Air 05/17/25 19:18 Scores <Kanika Alcaraz DO - Last Filed: 05/20/25 07:03> NIH Stroke Scale Level of Conciousness: Alert, keenly responsive Ask month/age: Answers both questions correctly. Open/close eyes, close hand: Performs both tasks correctly Best gaze horizontal: Normal Visual santana: No visual loss Facial palsy: Normal symetrical movement Left arm drift: No drift for full 10 sec Right arm drift: No drift for full 10 sec Left leg drift: No drift for full 5 sec Right leg drift: No drift for full 5 sec Limb ataxia: Absent Sensory on face/arms/legs: Normal, no sensory loss Best language: No aphasia, normal Dysarthria: Normal Extinction or inattention: No abnormality Total NIH Stroke scale score: 0 <Joshua Hernandez MD - Last Filed: 05/18/25 14:19> NIH Stroke Scale Total NIH Stroke scale score: 0 Course <Kanika Alcaraz DO - Last Filed: 05/20/25 07:03> Orders Ordered: Discontinued Medications Sodium Chloride (Normal Saline 0.9%) 1,000 mls @ 1,000 mls/hr IV BOLUS PRN PRN Reason: Fluid replacement Sodium Chloride (Normal Saline 0.9%) 1,000 mls @ 1,000 mls/hr IV BOLUS ONE Stop: 05/17/25 21:15 Last Infusion: 05/17/25 21:18 Dose: Infused Documented By: Admin: 05/17/25 20:18 Dose: 1,000 mls/hr Documented By: ABBEY Meclizine HCl (Meclizine Hcl 12.5 Mg Tablet) 25 mg PO NOW ONE Stop: 05/17/25 20:07 Last Admin: 05/17/25 20:15 Dose: 25 mg Documented By: ABBEY Midazolam HCl (Midazolam 2 Mg/2 Ml Vial) 2 mg IV NOW ONE Stop: 05/17/25 23:33 Last Admin: 05/17/25 23:38 Dose: 2 mg Documented By: ABBEY Vital Signs Vital signs: Vital Signs - 8 hr 05/18/25 06:30 05/18/25 06:30 05/18/25 07:00 Pulse Rate 75 Respiratory Rate 18 Blood Pressure 147/72 H 147/68 H Pulse Oximetry 91 Oxygen Delivery Method Room Air 05/18/25 07:00 05/18/25 07:30 05/18/25 07:30 Pulse Rate 74 77 Respiratory Rate 17 19 Blood Pressure 155/77 H Pulse Oximetry 91 93 Oxygen Delivery Method Room Air 05/18/25 08:00 05/18/25 08:00 05/18/25 08:30 Pulse Rate 76 Respiratory Rate 20 Blood Pressure 165/82 H 152/74 H Pulse Oximetry 93 Oxygen Delivery Method 05/18/25 08:30 05/18/25 09:00 05/18/25 09:00 Pulse Rate 75 78 Respiratory Rate 21 23 Blood Pressure 140/80 Pulse Oximetry 93 93 Oxygen Delivery Method 05/18/25 09:30 05/18/25 09:30 05/18/25 10:00 Pulse Rate 76 83 Respiratory Rate 19 30 H Blood Pressure 168/77 H Pulse Oximetry 92 87 L Oxygen Delivery Method 05/18/25 10:33 05/18/25 10:34 05/18/25 10:34 Pulse Rate 84 84 Respiratory Rate 22 23 Blood Pressure 149/79 H Pulse Oximetry 80 L 95 Oxygen Delivery Method 05/18/25 11:00 05/18/25 11:00 05/18/25 11:30 Pulse Rate 78 Respiratory Rate 19 Blood Pressure 146/69 H 161/77 H Pulse Oximetry 94 Oxygen Delivery Method 05/18/25 11:30 Pulse Rate 77 Respiratory Rate 19 Blood Pressure Pulse Oximetry 94 Oxygen Delivery Method <Joshua Hernandez MD - Last Filed: 05/18/25 14:19> Orders Ordered: Discontinued Medications Sodium Chloride (Normal Saline 0.9%) 1,000 mls @ 1,000 mls/hr IV BOLUS PRN PRN Reason: Fluid replacement Sodium Chloride (Normal Saline 0.9%) 1,000 mls @ 1,000 mls/hr IV BOLUS ONE Stop: 05/17/25 21:15 Last Infusion: 05/17/25 21:18 Dose: Infused Documented By: Admin: 05/17/25 20:18 Dose: 1,000 mls/hr Documented By: ABBEY Meclizine HCl (Meclizine Hcl 12.5 Mg Tablet) 25 mg PO NOW ONE Stop: 05/17/25 20:07 Last Admin: 05/17/25 20:15 Dose: 25 mg Documented By: ABBEY Midazolam HCl (Midazolam 2 Mg/2 Ml Vial) 2 mg IV NOW ONE Stop: 05/17/25 23:33 Last Admin: 05/17/25 23:38 Dose: 2 mg Documented By: ABBEY Vital Signs Vital signs: Vital Signs - 8 hr 05/18/25 06:30 05/18/25 06:30 05/18/25 07:00 Pulse Rate 75 Respiratory Rate 18 Blood Pressure 147/72 H 147/68 H Pulse Oximetry 91 Oxygen Delivery Method Room Air 05/18/25 07:00 05/18/25 07:30 05/18/25 07:30 Pulse Rate 74 77 Respiratory Rate 17 19 Blood Pressure 155/77 H Pulse Oximetry 91 93 Oxygen Delivery Method Room Air 05/18/25 08:00 05/18/25 08:00 05/18/25 08:30 Pulse Rate 76 Respiratory Rate 20 Blood Pressure 165/82 H 152/74 H Pulse Oximetry 93 Oxygen Delivery Method 05/18/25 08:30 05/18/25 09:00 05/18/25 09:00 Pulse Rate 75 78 Respiratory Rate 21 23 Blood Pressure 140/80 Pulse Oximetry 93 93 Oxygen Delivery Method 05/18/25 09:30 05/18/25 09:30 05/18/25 10:00 Pulse Rate 76 83 Respiratory Rate 19 30 H Blood Pressure 168/77 H Pulse Oximetry 92 87 L Oxygen Delivery Method 05/18/25 10:33 05/18/25 10:34 05/18/25 10:34 Pulse Rate 84 84 Respiratory Rate 22 23 Blood Pressure 149/79 H Pulse Oximetry 80 L 95 Oxygen Delivery Method 05/18/25 11:00 05/18/25 11:00 05/18/25 11:30 Pulse Rate 78 Respiratory Rate 19 Blood Pressure 146/69 H 161/77 H Pulse Oximetry 94 Oxygen Delivery Method 05/18/25 11:30 Pulse Rate 77 Respiratory Rate 19 Blood Pressure Pulse Oximetry 94 Oxygen Delivery Method MDM - Dizziness <Kanika Alcaraz, DO - Last Filed: 05/20/25 07:03> Lab Data 05/17/25 19:25 05/17/25 19:25 Labs: Lab Results 05/17/25 05/17/25 Range/Units 19:25 21:33 WBC 6.6 (4.5-11.0) X10^3/uL RBC 3.69 L (4.0-5.2) X10^6/uL Hgb 11.9 L (12.0-16.0) g/dL Hct 35.3 L (36-46) % MCV 95.7 (80-100) fL MCH 32.2 (26-34) PG MCHC 33.7 (30-36) % RDW 12.9 (11.6-14.8) % Plt Count 256 (150-400) X10^3/uL Neut % (Auto) 70.4 (50-75) % Lymph % (Auto) 15.6 L (25-40) % [place] % (Auto) 8.6 (3-14) % Eos % (Auto) 4.1 H (2-4) % Baso % (Auto) 1.3 (0-2) % Neut # (Auto) 4700 (8040-9929) /uL Lymph # (Auto) 1000 L (4608-9915) /uL [place] # (Auto) 600 (0-900) /uL Eos # (Auto) 300 (0-450) /uL Baso # (Auto) 100 (0-100) /uL Sodium 136 L (137-145) mmol/L Potassium 3.8 (3.4-5.1) mmol/L Chloride 100 (98-107) mmol/L Carbon Dioxide 26 (22-32) mmol/L BUN 18 H (7-17) mg/dL Creatinine 0.62 (0.52-1.04) mg/dL Estimated GFR > 60 (>60) mL/min BUN/Creatinine Ratio 29.0 H (6-22) Glucose 147 H (70-99) mg/dL Calcium 9.2 (8.4-10.2) mg/dL Magnesium 1.8 (1.6-2.3) mg/dL Total Bilirubin 0.6 (0.2-1.3) mg/dL AST 31 (14-36) IU/L ALT 20 (<35) IU/L Alkaline Phosphatase 82 (38-126) U/L Troponin I 0.171 H* 0.176 H* (0.01-0.034) ng/mL NT-Pro-B Natriuret Pep 132 (<450) pg/mL Total Protein 7.4 (6.3-8.2) g/dL Albumin 4.3 (3.5-5.0) g/dL Globulin 3.1 (1.7-4.1) g/dL Albumin/Globulin Ratio 1.4 (1.0-2.8) Lipase 46 (23-300) U/L Urine Dip Bedside Urine Glucose Negative Bedside Urine Bilirubin - Negative Bedside Urine Ketone - Negative Urine Specific [place] 1.005 Bedside Urine Occult Blood - Negative Bedside Urine pH 7.5 Bedside Urine Protein - Negative Bedside Urine Urobilinogen - Negative Bedside Urine Nitrite - Negative Bedside Urine Leukocytes - Negative Esterase Imaging Data Chest x-ray: Radiologist's Impression: PROCEDURE: XR CHEST 1V INDICATIONS: dizzy TECHNIQUE: One view of the chest was acquired. COMPARISON: [facility], CR, XR CHEST 1V, 01/05/2020, 0:10. FINDINGS: Surgical changes and devices: None. Lungs and pleura: Lungs are clear. No pleural effusions or pneumothorax. Mediastinum: Mediastinal contours appear normal. Heart size is normal. Bones and chest wall: No suspicious bony lesions. Overlying soft tissues appear unremarkable. IMPRESSION: No acute cardiopulmonary abnormalities or focal consolidation. Dictated by: Addison Hager M.D. on 05/17/2025 at 19:58 Approved by: Addison Hager M.D. on 05/17/2025 at 19:58 CTA - brain/neck: Radiologist's Impression: PROCEDURE: CT ANGIO HEAD AND NECK INDICATIONS: dizzy post cardiac ablation TECHNIQUE: After the administration of intravenous contrast, 1 mm thick sections acquired from the aortic arch through the [place]. 3-dimensional dobbqft-sbxmooaoz-qzhorllxxp (MIP) and/or volume rendering reformats were acquired of the central intracranial vasculature and neck separately. For radiation dose reduction, the following was used: automated exposure control, adjustment of mA and/or kV according to patient size. COMPARISON: [facility], CR, XR CERVICAL SPINE 2V OR 3V, 04/02/2025, 10:27. FINDINGS: Image quality: Diagnostic. BRAIN: CSF spaces: Ventricles are normal in size and shape. Basal cisterns are patent. No extra-axial fluid collections. Brain: No midline shift. No intracranial masses. No suspicious enhancement. Red-white matter interface appears intact. Skull and face: Calvarium and facial bones appear intact, without suspicious lesions. Orbits appear normal. Sinuses: Bilateral mastoid air cells are clear. Minimal mucosal thickening of the sphenoid sinus and right maxillary sinus. Other paranasal sinuses are clear. HEAD CT ANGIOGRAPHY: Anterior circulation: There are atherosclerotic calcifications of the intracranial segments of the internal carotid arteries. Intracranial internal carotid arteries appear patent without high-grade stenosis. There is flow/opacification within the paired anterior cerebral arteries. There is opacification within the middle cerebral arteries. The anterior communicating artery is seen. No aneurysms are seen. No occlusion. Posterior circulation: Visualized portions of the vertebral arteries are patent and join to form a normal appearing basilar artery. No evidence for high-grade stenosis. No occlusions. There is opacification of the posterior cerebral arteries. No aneurysms are seen. NECK CT ANGIOGRAPHY: Carotid system: The great vessels demonstrate a conventional anatomy as they arise from the aortic arch. Atherosclerotic calcifications of the aortic arch are present. The origins of the common carotid arteries appear patent. The common carotid arteries appear patent throughout their visualized courses without high grade stenosis. Atherosclerotic calcifications at the carotid bifurcation bilaterally. The bifurcation regions are both patent without high grade stenosis. Atherosclerosis involving the proximal segments of the bilateral internal carotid arteries. The internal carotid arteries demonstrate no high-grade stenosis. Both are patent. Posterior circulation: The origins of the vertebral arteries both appear patent without hemodynamically significant stenosis. The more superior extracranial portions of both vertebral arteries also demonstrate normal courses and calibers. They join to form a normal appearing basilar artery. Soft tissues: Visualized neck soft tissues demonstrate no suspicious abnormalities. Bones: No suspicious bony lesions. Visualized cervical spine appears normally aligned. No acute compression fractures of the vertebral bodies. Moderate multilevel cervical spondylosis. IMPRESSION: No significant intracranial arterial abnormality is seen. No significant abnormality is seen within the arteries of the neck. If there is persistent or high clinical suspicion for acute cerebrovascular ischemia/stroke, more sensitive evaluation with brain MRI can be considered. Any quantitative measurements of stenosis were performed using NASCET criteria. Dictated by: Addison Hager M.D. on 05/17/2025 at 21:12 Approved by: Addison Hager M.D. on 05/17/2025 at 21:20 ECG Data Attestation: I personally reviewed and interpreted this ECG as follows: Prior ECG tracings: available for review Interpretation: Normal sinus rhythm rate 77 NC interval 176 QRS [address] changes no T- wave inversions MDM Narrative Medical decision making narrative: MDM CC: Dizziness Complicating co-morbidities: Atrial flutter recent ablation Data collected from: Patient, sister Medical records reviewed: Previous walk-in clinics for ongoing pain issues Differential considered: Benign paroxysmal positional vertigo, CVA, electrolyte abnormality, anemia Exam documented above, pertinent findings include: NIH 0 regular rate and rhythm Lab Test results independently reviewed as above. Pertinent findings: Troponin positive 0.171-->0.176 CBC no leukocytosis or anemia CMP sodium is 136 significant electrolyte abnormalities creatinine 0.62 glucose 147 Bilirubin liver enzymes within normal limits Independently reviewed EKG as above Sinus rhythm no ischemia Imaging studies independently reviewed: Chest x-ray no acute cardiopulmonary process CT head and neck angio no large vessel occlusion Consultations: 2300 Dr. Higinio Moreira cardiology at [facility] updated patient's symptoms test results reports that troponin is likely due from recent ablation Treatments: IV fluid meclizine Versed Re-evaluations: 215 attempted ambulation trial she is still very unsteady. Discussion: Patient is 75-year-old female presenting to day with sudden onset of dizziness. She has a NIH of 0 blood work is overall reassuring with an elevated troponin. This is likely secondary to her recent cardiac ablation. CT angio does not show any evidence of large vessel occlusion. However after multiple hours in the ED with ongoing vertigo like symptoms. Still not safe to go home. Will likely require an MRI in the morning. Sleeping throughout the day. She did take her home medications. Signed out to Dr. Hernandez <Joshua Hernandez MD - Last Filed: 05/18/25 14:19> Lab Data Labs: Lab Results 05/17/25 05/17/25 Range/Units 19:25 21:33 WBC 6.6 (4.5-11.0) X10^3/uL RBC 3.69 L (4.0-5.2) X10^6/uL Hgb 11.9 L (12.0-16.0) g/dL Hct 35.3 L (36-46) % MCV 95.7 (80-100) fL MCH 32.2 (26-34) PG MCHC 33.7 (30-36) % RDW 12.9 (11.6-14.8) % Plt Count 256 (150-400) X10^3/uL Neut % (Auto) 70.4 (50-75) % Lymph % (Auto) 15.6 L (25-40) % [place] % (Auto) 8.6 (3-14) % Eos % (Auto) 4.1 H (2-4) % Baso % (Auto) 1.3 (0-2) % Neut # (Auto) 4700 (5844-8808) /uL Lymph # (Auto) 1000 L (1442-1692) /uL [place] # (Auto) 600 (0-900) /uL Eos # (Auto) 300 (0-450) /uL Baso # (Auto) 100 (0-100) /uL Sodium 136 L (137-145) mmol/L Potassium 3.8 (3.4-5.1) mmol/L Chloride 100 (98-107) mmol/L Carbon Dioxide 26 (22-32) mmol/L BUN 18 H (7-17) mg/dL Creatinine 0.62 (0.52-1.04) mg/dL Estimated GFR > 60 (>60) mL/min BUN/Creatinine Ratio 29.0 H (6-22) Glucose 147 H (70-99) mg/dL Calcium 9.2 (8.4-10.2) mg/dL Magnesium 1.8 (1.6-2.3) mg/dL Total Bilirubin 0.6 (0.2-1.3) mg/dL AST 31 (14-36) IU/L ALT 20 (<35) IU/L Alkaline Phosphatase 82 (38-126) U/L Troponin I 0.171 H* 0.176 H* (0.01-0.034) ng/mL NT-Pro-B Natriuret Pep 132 (<450) pg/mL Total Protein 7.4 (6.3-8.2) g/dL Albumin 4.3 (3.5-5.0) g/dL Globulin 3.1 (1.7-4.1) g/dL Albumin/Globulin Ratio 1.4 (1.0-2.8) Lipase 46 (23-300) U/L Urine Dip Bedside Urine Glucose Negative Bedside Urine Bilirubin - Negative Bedside Urine Ketone - Negative Urine Specific [place] 1.005 Bedside Urine Occult Blood - Negative Bedside Urine pH 7.5 Bedside Urine Protein - Negative Bedside Urine Urobilinogen - Negative Bedside Urine Nitrite - Negative Bedside Urine Leukocytes - Negative Esterase Imaging Data MRI brain: Radiologist's Impression: [address] [address] Magnetic Resonance Report Signed Patient: Manasa Coley MR#: [id number] : 1950 Acct:[id number] Age/Sex: 75 / F Date of Service: 05/18/25 Loc: ED Accession Number: [id number] Procedure: MR head/brain wo con Ordering Provider: Kanika Alcaraz D.O. PROCEDURE: MR HEAD/BRAIN WO CON INDICATIONS: on going dizziness TECHNIQUE: Noncontrast axial T1 spin echo, axial T2 fast spin echo, sagittal and axial FLAIR, coronal T2 fast spin echo, axial gradient echo, axial diffusion and ADC through the brain. COMPARISON: [facility], CT, CT ANGIO HEAD AND NECK, 05/17/2025, 20:12. FINDINGS: Image quality: Diagnostic CSF spaces: Basal cisterns are patent. Lateral ventricles are symmetric. Volume: Volume loss. Periventricular white matter signal abnormality most commonly seen with small vessel disease. These findings are [id number] Brain: No acute infarct seen on diffusion images. No acute hematoma identified. No significant area of parenchymal edema. Craniofacial structures: Mild paranasal sinus mucosal thickening. IMPRESSION: No acute infarct or hematoma. Dictated by: Brown Terrell M.D. on 05/18/2025 at 11:13 Approved by: Brown Terrell M.D. on 05/18/2025 at 11:14 [facility] Narrative Medical decision making narrative: MDM CC: Dizziness Complicating co-morbidities: Atrial flutter recent ablation Data collected from: Patient, sister Medical records reviewed: Previous walk-in clinics for ongoing pain issues Differential considered: Benign paroxysmal positional vertigo, CVA, electrolyte abnormality, anemia Exam documented above, pertinent findings include: NIH 0 regular rate and rhythm Lab Test results independently reviewed as above. Pertinent findings: Troponin positive 0.171-->0.176 CBC no leukocytosis or anemia CMP sodium is 136 significant electrolyte abnormalities creatinine 0.62 glucose 147 Bilirubin liver enzymes within normal limits Independently reviewed EKG as above Sinus rhythm no ischemia Imaging studies independently reviewed: Chest x-ray no acute cardiopulmonary process CT head and neck angio no large vessel occlusion MRI brain no acute finding Consultations: 2300 Dr. Higinio Moreira cardiology at [facility] updated patient's symptoms test results reports that troponin is likely due from recent ablation Treatments: IV fluid meclizine Versed Re-evaluations: 215 attempted ambulation trial she is still very unsteady. 11:56 a.m.. Reviewed results with patient. MRI no acute finding. No stroke. She is feeling much better. She states the meclizine has helped her. She has been up and walking with the nurse. She has requested a walker and she states she could probably walk by herself but she does not want take any chances because she is on Eliquis. She does not want to be admitted. She has a walker at home. Again, she states she probably does not need it but does not want to take any chances. Sister is coming to pick her up. Return precautions reviewed with her. Likely vertigo. She desires discharge home. Discussion: Patient is 75-year-old female presenting to day with sudden onset of dizziness. She has a NIH of 0 blood work is overall reassuring with an elevated troponin. This is likely secondary to her recent cardiac ablation. CT angio does not show any evidence of large vessel occlusion. However after multiple hours in the ED with ongoing vertigo like symptoms. Still not safe to go home. Will likely require an MRI in the morning. Sleeping throughout the day. She did take her home medications. Signed out to Dr. Hernandez 7:00 a.m.. David: sign out from Dr Alcaraz , patient here for intractable dizziness ataxia. MRI is pending. Cardiology service has been contacted and troponin is expected after ablation. No further evaluation. Patient is in sinus rhythm. MRI is pending. CT angiogram negative. Patient still unsteady this might meclizine and Versed and IV fluids. 8:35 a.m.. Spoke with patient treatment plan. MRI is pending at 9:30 a.m.. Patient in no distress. Reviewed with her ruling out stroke versus vertigo. Discharge Plan Departure Patient Disposition: Home Clinical Impression: Vertigo Instructions: DI for Vertigo Activity Restrictions/Additional Instructions: You are likely experiencing vertigo. Your laboratory studies imaging studies are reassuring. No driving operating machinery Until seen by family doctor.. Keep well hydrated. Continue home medications. Prescription for meclizine to help dizziness has been sent to your pharmacy to continue. Return if worse if any questions or concerns Prescriptions: New meclizine 25 mg tablet 25 mg PO QID PRN (Reason: dizziness) Qty: 20 0RF No Action duloxetine 60 mg capsule,delayed release(DR/EC) 60 mg PO DAILY wixela inhaler inhalation cyclobenzaprine 5 mg tablet 5 mg PO TID PRN (Reason: muscle spasm) Qty: 14 0RF diltiazem HCl 120 mg capsule,extended release 24hr PO omeprazole 20 mg capsule,delayed release(DR/EC) 20 mg PO DAILY atorvastatin 20 mg tablet 20 mg PO DAILY propafenone 225 mg tablet 225 mg PO BID losartan 50 mg Tablet 50 mg PO DAILY albuterol sulfate 90 mcg/actuation Hfa Aerosol Inhaler 2 puff INHALATION Q6H PRN (Reason: short of breath) fluticasone propionate [Flonase Allergy Relief] 50 mcg/actuation [facility],Suspension 1 spray INTRANASAL DAILY PRN (Reason: allergies) montelukast [Singulair] 10 mg Tablet 10 mg PO DAILY Referrals: Janeth Fang MD [Primary Care Provider, Internal Medicine] Stand Alone Forms: Patient Portal/API
--- NOTE | 2025-05-17 19:42 | EKG_ITS ---
[address] [id number] [place] [address] Test Date: 2025-05-17 Pat Name: Manasa Coley Department: [facility] Room: Gender: Female Criminal Defense Lawyer: ELSA STOKES : 1950 Requested By: Order Number: [id number] Reading MD: Gonzales Friedman MD Measurements Intervals [place] Rate: 77 P: 81 FL: 176 QRS: 52 QRSD: 84 T: 73 QT: 400 QTc: 452 Interpretive Statements Sinus rhythm with premature atrial complexes Septal infarct , age undetermined Electronically Signed On 05-18-2025 7:26:22 PST by Gonzales Friedman MD
[2025-05-17 19:45] LABS: Add Manual Diff / Slide Review NO; Hematocrit 35.3 % (36-46); Hemoglobin 11.9 g/dL (12.0-16.0); Lymphocytes Absolute Auto 1000 /uL (1100-4500); Mean Corpuscular HGB Conc 33.7 % (30-36); Mean Corpuscular Hemoglobin 32.2 PG (26-34); Mean Corpuscular Volume 95.7 fL (80-100); Platelet Count 256 X10^3/uL (150-400)
[2025-05-17 19:58] LABS: Alanine Aminotransferase 20 IU/L (<35); Albumin 4.3 g/dL (3.5-5.0); Albumin Globulin Ratio 1.4 (1.0-2.8); Alkaline Phosphatase 82 U/L (38-126); Blood Urea Nitrogen 18 mg/dL (7-17); Calcium 9.2 mg/dL (8.4-10.2); Carbon Dioxide 26 mmol/L (22-32); Chloride 100 mmol/L (98-107); Estimated Glomerular Filt Rate > 60 mL/min (>60); Globulin 3.1 g/dL (1.7-4.1); Glucose 147 mg/dL (70-99); HEMOLYSIS 23 (0-50); Lipase 46 U/L (23-300); Magnesium 1.8 mg/dL (1.6-2.3); Potassium 3.8 mmol/L (3.4-5.1); Sodium 136 mmol/L (137-145); Total Protein 7.4 g/dL (6.3-8.2)
--- NOTE | 2025-05-17 20:06 | DI.CT.S_ITS ---
PROCEDURE: CT ANGIO HEAD AND NECK INDICATIONS: dizzy post cardiac ablation TECHNIQUE: After the administration of intravenous contrast, 1 mm thick sections acquired from the aortic arch through the [place]. 3-dimensional tknfumw-lphbncdao-fdceurbkgr (MIP) and/or volume rendering reformats were acquired of the central intracranial vasculature and neck separately. For radiation dose reduction, the following was used: automated exposure control, adjustment of mA and/or kV according to patient size. COMPARISON: [facility], CR, XR CERVICAL SPINE 2V OR 3V, 04/02/2025, 10:27. FINDINGS: Image quality: Diagnostic. BRAIN: CSF spaces: Ventricles are normal in size and shape. Basal cisterns are patent. No extra-axial fluid collections. Brain: No midline shift. No intracranial masses. No suspicious enhancement. Red-white matter interface appears intact. Skull and face: Calvarium and facial bones appear intact, without suspicious lesions. Orbits appear normal. Sinuses: Bilateral mastoid air cells are clear. Minimal mucosal thickening of the sphenoid sinus and right maxillary sinus. Other paranasal sinuses are clear. HEAD CT ANGIOGRAPHY: Anterior circulation: There are atherosclerotic calcifications of the intracranial segments of the internal carotid arteries. Intracranial internal carotid arteries appear patent without high-grade stenosis. There is flow/opacification within the paired anterior cerebral arteries. There is opacification within the middle cerebral arteries. The anterior communicating artery is seen. No aneurysms are seen. No occlusion. Posterior circulation: Visualized portions of the vertebral arteries are patent and join to form a normal appearing basilar artery. No evidence for high-grade stenosis. No occlusions. There is opacification of the posterior cerebral arteries. No aneurysms are seen. NECK CT ANGIOGRAPHY: Carotid system: The great vessels demonstrate a conventional anatomy as they arise from the aortic arch. Atherosclerotic calcifications of the aortic arch are present. The origins of the common carotid arteries appear patent. The common carotid arteries appear patent throughout their visualized courses without high grade stenosis. Atherosclerotic calcifications at the carotid bifurcation bilaterally. The bifurcation regions are both patent without high grade stenosis. Atherosclerosis involving the proximal segments of the bilateral internal carotid arteries. The internal carotid arteries demonstrate no high-grade stenosis. Both are patent. Posterior circulation: The origins of the vertebral arteries both appear patent without hemodynamically significant stenosis. The more superior extracranial portions of both vertebral arteries also demonstrate normal courses and calibers. They join to form a normal appearing basilar artery. Soft tissues: Visualized neck soft tissues demonstrate no suspicious abnormalities. Bones: No suspicious bony lesions. Visualized cervical spine appears normally aligned. No acute compression fractures of the vertebral bodies. Moderate multilevel cervical spondylosis. IMPRESSION: No significant intracranial arterial abnormality is seen. No significant abnormality is seen within the arteries of the neck. If there is persistent or high clinical suspicion for acute cerebrovascular ischemia/stroke, more sensitive evaluation with brain MRI can be considered. Any quantitative measurements of stenosis were performed using NASCET criteria. Dictated by: Addison Hager M.D. on 05/17/2025 at 21:12 Approved by: Addison Hager M.D. on 05/17/2025 at 21:20
[2025-05-17] MEDS: MECLIZINE HCL 12.5 MG TABLET 25 MG PO (20:15)
[2025-05-17] MEDS: SODIUM CHLORIDE 0.9% 1,000 ML 1000 ML IV (20:18)
--- NOTE | 2025-05-17 20:21 | PC.NURSE ---
Pt to imaging via ED stretcher with traffic control technician
[2025-05-17 20:23] LABS: Troponin I 0.171 ng/mL (0.01-0.034)
[2025-05-17 20:58] LABS: NT-proBNP (BNP-Adult 18+) 132 pg/mL (<450)
[2025-05-17 22:41] LABS: Troponin I 0.176 ng/mL (0.01-0.034)
--- NOTE | 2025-05-17 22:41 | PC.NURSE ---
Pt attempted to ambulate to restroom with 1 person assist. Unsuccessful, still feeling very dizzy and unstable. Placed back in ED stretcher, bedside commode brought in.
[2025-05-17] MEDS: MIDAZOLAM 2 MG/2 ML VIAL IV (23:38)
[2025-05-18] VITALS (26 sets, daily range): BP systolic 140–176; BP diastolic 68–92; PULSE 74–102; RESP 17–30; O2SAT 80–97
--- NOTE | 2025-05-18 01:22 | PC.NURSE ---
Pt awake after using bedside commode requesting to take home night meds. Ok'd by Dr. Alcaraz, pt takes losartin, propafenone, and eliquis. Pt denies any current feelings of nausea. Continued plan of care discussed. No further requests of concerns at this time. Pt remians connected to cardiac, resp, blood pressure, and pulse ox monitors with alarms on and audible. VS stable at this time. Call light within reach.
--- NOTE | 2025-05-18 02:16 | PC.NURSE ---
Dr. Alcaarz at bedside. Attempted ambulation trial with patient. Within a few steps of stretcher pt shuffle steps and states she is feeling lightheaded. Pt states she does not feel stable at this time. Pt placed back in ED stretcher at this time. Continued plan of care discussed to allow pt to continue to rest. Pt in agreement. Placed back on cardiac, resp, blood pressure, and pulse ox monitors with alarms on and audible. VS stable at this time. Call light within reach.
--- NOTE | 2025-05-18 10:37 | DI.MRI.S_ITS ---
PROCEDURE: MR HEAD/BRAIN WO CON INDICATIONS: on going dizziness TECHNIQUE: Noncontrast axial T1 spin echo, axial T2 fast spin echo, sagittal and axial FLAIR, coronal T2 fast spin echo, axial gradient echo, axial diffusion and ADC through the brain. COMPARISON: [facility], CT, CT ANGIO HEAD AND NECK, 05/17/2025, 20:12. FINDINGS: Image quality: Diagnostic CSF spaces: Basal cisterns are patent. Lateral ventricles are symmetric. Volume: Volume loss. Periventricular white matter signal abnormality most commonly seen with small vessel disease. These findings are [id number] Brain: No acute infarct seen on diffusion images. No acute hematoma identified. No significant area of parenchymal edema. Craniofacial structures: Mild paranasal sinus mucosal thickening. IMPRESSION: No acute infarct or hematoma. Dictated by: Brown Terrell M.D. on 05/18/2025 at 11:13 Approved by: Brown Terrell M.D. on 05/18/2025 at 11:14
== END 2025-05-18 12:23 | disposition home or self-care (01) ==
PROVIDERS: Emergency Medicine; Emergency Provider Emergency Medicine; PCP Internal Medicine
DX: R42 Dizziness and giddiness (principal); R11.0 Nausea; Z79.01 Long term (current) use of anticoagulants
CPT/HCPCS: 36415; 70496; 70498; 70551; 71045; 80053; 81003; 83690; 83735; 83880; 84484; 85025; 93005; 96361; 96374; 99285; J2250; J7030; Q9967